=== PATIENT | female | born 1965 | race Caucasian/White ===

== ENCOUNTER 2017-03-14 11:54 | Inpatient (IN) | payer OTHER ==
[~2017-03-14] VITALS: Ht 162.6 cm; Wt 60.2 kg
[~2017-03-14 11:54] MED LIST: NEOSTIGMINE 3 MG/3 ML SYR IV ONE; ONDANSETRON HCL 4 MG/2 ML VIAL IV PUSH ONE; PROPOFOL 200 MG/20 ML AMP IV ONE
[2017-03-14 12:09] VITALS: BP 138/66; PULSE 66; RESP 16; TEMP 97.9; O2SAT 100
[2017-03-14 12:28] LABS: GLUCOSE,URINE NEG (NEG); KETONE, URINE NEG (NEG); NITRITE,URINE NEG (NEG)
[2017-03-14 12:30] LABS: BLOOD, URINE TRACE (NEG); METHOD OF COLLECTION CLEAN CATCH; URINE COLOR YELLOW (YELLW/STRAW)
[2017-03-14 12:31] LABS: COMMENT (UR) CULT NOT INDICATED; CULTURE IF INDICATED CULT NOT INDICATED; RBC, URINE 0-3 /hpf (0-3); SQUAMOUS EPITHELIAL CELL URINE 0-5 /hpf (0-5); WBC, URINE 0-2 /hpf (0-5)
[2017-03-14] MEDS ORDERED: SODIUM CHLOR 0.9% 1000 ML INJ 1,000 ML IV SCH (13:36)
[2017-03-14] MEDS ORDERED: FLUT1SPR5 EACH NARE (13:40)
[2017-03-14] MEDS ORDERED: MONT4CHW2 CHEW (13:40)
[2017-03-14] MEDS ORDERED: ADVA100A INH (13:40)
[2017-03-14 13:41] VITALS: O2SAT 100
--- NOTE | 2017-03-14 13:42 | PD ---
HPI Chief Complaint: Abdominal Pain Time Seen by Provider: 13:29 Travel History International Travel<30 days: No Contact w/Intl Traveler<30days: No Traveled to known affect area: No History of Present Illness HPI 51yo F with PMH of asthma, mitral valve prolapse and uterine ablation presents to the ED with c/o abdominal pain that started yesterday. Pain is generalized and burning. Associated with nausea. States she took advil which helped yesterday but pain returned. Did not take any pain medication today. Denies any fever, vomiting, chest pain, sob, urinary complaints, vaginal bleeding or discharge. PSH include tubal ligation and uterine ablation. PFSH Past Medical History Asthma: Yes Cardiovascular Problems: Yes (MVP) ?: Not LMP: no menses Tubal Ligation: Yes Past Surgical History Gynecologic Surgery: Yes (UTERINE ABLATION) Social History Alcohol Use: Yes (5TH VOKA/PER WEEK) Tobacco Use: No Allergies-Medications (Allergen,Severity, Reaction): Coded Allergies: Sulfa (Sulfonamide Antibiotics) (Verified Allergy, Severe, lip swelling, 03/14/17) adhesive tape (Verified Allergy, Intermediate, rash, 03/14/17) Reported Meds & Prescriptions Reported Meds & Active Scripts Active Zofran (Ondansetron HCl) 4 Mg Tab 4 Mg PO Q6HR PRN [place] (Hydrocodone-Acetaminophen) 5-325 mg Tab 1 Tab PO Q6H PRN Reported Flonase Nasal [place] (Fluticasone Nasal [place]) 50 Mcg/Act [place] 50 Mcg EACH NARE BID Singulair (Montelukast Sodium) 4 Mg Chew 4 Mg CHEW HS Advair Diskus Inh (Fluticasone-Salmeterol Inh) 100-50 Mcg/Blist Aer 1 Puff INH BID Rinse mouth after use. Review of Systems Except as stated in HPI: all other systems reviewed are Neg Physical Exam Narrative GENERAL: 51yo F in mild distress. SKIN: Focused skin assessment warm/dry. HEAD: Atraumatic. Normocephalic. EYES: Pupils equal and round. No scleral icterus. No injection or drainage. CARDIOVASCULAR: Regular rate and rhythm. No murmur appreciated. RESPIRATORY: No accessory muscle use. Clear to auscultation. Breath sounds equal bilaterally. GASTROINTESTINAL: Abdomen soft, +TTP RLQ more than other region. Mild ttp diffusely. No rebound tenderness or guarding. BACK: CVA tenderness bilaterally. No ttp midline thoracic and lumbar spine. MUSCULOSKELETAL: No obvious deformities. No clubbing. No cyanosis. No edema. NEUROLOGICAL: Awake and alert. No obvious cranial nerve deficits. Motor grossly within normal limits. Normal speech. PSYCHIATRIC: Appropriate mood and affect; insight and judgment normal. Data Data Last Documented VS Vital Signs Date Time Temp Pulse Resp B/P (MAP) Pulse Ox O2 Delivery O2 Flow Rate FiO2 03/14/17 13:41 100 Room Air 03/14/17 12:09 97.9 66 16 138/66 (90) Orders Orders Urinalysis - C+S If Indicated (03/14/17 12:12) Ed Urine Pregnancytest Poc (03/14/17 12:12) Complete Blood Count With Diff (03/14/17 13:36) Comprehensive Metabolic Panel (03/14/17 13:36) Lipase (03/14/17 13:36) Prothrombin Time / Inr (Pt) (03/14/17 13:36) Act Partial Throm Time (Ptt) (03/14/17 13:36) Ct Abd/Pel W Iv Contrast(Rout) (03/14/17 13:36) Iv Access Insert/Monitor (03/14/17 13:36) Ecg Monitoring (03/14/17 13:36) Oximetry (03/14/17 13:36) Morphine Inj (Morphine Inj) (03/14/17 13:45) Ondansetron Inj (Zofran Inj) (03/14/17 13:45) Sodium Chlor 0.9% 1000 Ml Inj (Ns 1000 M (03/14/17 13:36) Sodium Chloride 0.9% Flush (Ns Flush) (03/14/17 13:45) Electrocardiogram (03/14/17 ) Iohexol 350 Inj (Omnipaque 350 Inj) (03/14/17 14:10) Consult Tiana Nfs (03/14/17 ) Admit Order (Ed Use Only) (03/14/17 15:47) Labs Laboratory Tests Test 03/14/17 12:15 03/14/17 13:56 Urine Collection Type CLEAN CATCH Urine Color YELLOW Urine Turbidity CLEAR Urine pH 6.0 Urine Specific [place] 1.010 Urine Protein NEG mg/dL Urine Glucose (UA) NEG mg/dL Urine Ketones NEG mg/dL Urine Occult Blood TRACE Urine Nitrite NEG Urine Bilirubin NEG Urine Leukocyte Esterase NEG Urine RBC 0-3 /hpf Urine WBC 0-2 /hpf Urine Squamous Epithelial Cells 0-5 /hpf Microscopic Urinalysis Comment CULT NOT INDICATED Urine Collection Time 12:15 White Blood Count 9.5 TH/MM3 Red Blood Count 4.57 MIL/MM3 Hemoglobin 13.7 GM/DL Hematocrit 41.8 % Mean Corpuscular Volume 91.4 FL Mean Corpuscular Hemoglobin 30.0 PG Mean Corpuscular Hemoglobin Concent 32.8 % Red Cell Distribution Width 12.9 % Platelet Count 230 TH/MM3 Mean Platelet Volume 7.6 FL Neutrophils (%) (Auto) 82.4 % Lymphocytes (%) (Auto) 10.6 % Monocytes (%) (Auto) 6.0 % Eosinophils (%) (Auto) 0.5 % Basophils (%) (Auto) 0.5 % Neutrophils # (Auto) 7.9 TH/MM3 Lymphocytes # (Auto) 1.0 TH/MM3 Monocytes # (Auto) 0.6 TH/MM3 Eosinophils # (Auto) 0.0 TH/MM3 Basophils # (Auto) 0.0 TH/MM3 CBC Comment DIFF FINAL Differential Comment Prothrombin Time 10.1 SEC Prothromb Time International Ratio 0.9 RATIO Activated Partial Thromboplast Time 25.0 SEC Blood Urea Nitrogen 13 MG/DL Creatinine 0.80 MG/DL Random Glucose 91 MG/DL Total Protein 7.6 GM/DL Albumin 4.3 GM/DL Calcium Level 8.8 MG/DL Alkaline Phosphatase 44 U/L Aspartate Amino Transf (AST/SGOT) 13 U/L Alanine Aminotransferase (ALT/SGPT) 23 U/L Total Bilirubin 0.5 MG/DL Sodium Level 138 MEQ/L Potassium Level 3.6 MEQ/L Chloride Level 101 MEQ/L Carbon Dioxide Level 28.5 MEQ/L Anion Gap 9 MEQ/L Estimat Glomerular Filtration Rate 76 ML/MIN Lipase 166 U/L [facility] Medical Decision Making Medical Screen Exam Complete: Yes Emergency Medical Condition: Yes Differential Diagnosis Acute appendicitis vs. colitis vs. pancreatitis vs. gastritis Narrative Course 51yo F with abdominal pain since yesterday. Said it was generalized but more on the right side. Pt is tender in RLQ on physical exam. Labs reviewed, no leukocytosis. Neutrophil is 82.4%. CMP normal. Lipase normal. UA showed no leukocyte. Urine negative. Pt given NS IVF, morphine 4mg IV and zofran. Pt reevaluated at bedside and pain and nausea had improved. bindery machine tender in RLQ on exam. CT a/p showed inflammatory process suspected involving base of appendix concerning for early acute appendicitis. 1.8 cm low density lesion in pancreatic head, nonspecific, will have pt follow up as outpatient. Discussed with Dr. Eduardo who said Dr. Sorensen is corporate vp advertising & online so he will let Dr. Sorensen know and he will call back. Discussed with Dr. Sorensen and he will take the pt to the OR. Pt has been NPO. Diagnosis Primary Impression: Acute appendicitis Qualified Codes: K35.89 - Other acute appendicitis Admitting Information Admitting Physician Requests: Admit Scripts Ondansetron (Zofran) 4 Mg Tab 4 MG PO Q6HR Y for NAUSEA OR VOMITING, #14 TAB 0 Refills Prov: Dylan Sorensen MD 03/14/17 Hydrocodone-Acetaminophen ([place]) 5-325 mg Tab 1 TAB PO Q6H Y for PAIN, #20 TAB 0 Refills Prov: Dylan Sorensen MD 03/14/17 Sheryl Melgar DO Mar 14, 2017 13:42
[2017-03-14] MEDS ORDERED: ONDANSETRON HCL 4 MG/2 ML VIAL IVP ONE (13:45)
[2017-03-14] MEDS ORDERED: MORPHINE SULFATE 4 MG/ML INJ IV PUSH ONE (13:45)
[2017-03-14] MEDS ORDERED: SODIUM CHLORIDE 0.9% FLUSH 10 ML FLUSH IV FLUSH PRN (13:45)
[2017-03-14 14:05] LABS: AUTOMATED NEUTROPHIL # 7.9 TH/MM3 (1.8-7.7); BASOPHIL % 0.5 % (0.0-2.0); EOSINOPHIL % 0.5 % (0.0-4.0); HEMATOCRIT 41.8 % (35.0-46.0); LYMPH % 10.6 % (9.0-44.0); MEAN CELL VOLUME 91.4 FL (80.0-100.0); MEAN CORPUSCULAR HGB CONC 32.8 % (32.0-36.0); NEUT % 82.4 % (16.0-70.0); PLATELET COUNT 230 TH/MM3 (150-450); RED BLOOD COUNT 4.57 MIL/MM3 (4.00-5.30); RED CELL DISTRIBUTION WIDTH 12.9 % (11.6-17.2); WHITE BLOOD COUNT 9.5 TH/MM3 (4.0-11.0)
[2017-03-14 14:06] LABS: HEMO FLAGS DIFF FINAL
[2017-03-14] MEDS ORDERED: IOHEXOL 350 MG/ML 10 ML VIAL (for RAD DIAG) IVCONTRAST ONE (14:10)
[2017-03-14 14:13] LABS: CHLORIDE 101 MEQ/L (98-107); POTASSIUM 3.6 MEQ/L (3.5-5.1); SODIUM (NA) 138 MEQ/L (136-145)
[2017-03-14 14:17] LABS: ANION GAP 9 MEQ/L (5-15); BICARBONATE 28.5 MEQ/L (21.0-32.0); BLOOD UREA NITROGEN 13 MG/DL (7-18)
[2017-03-14 14:19] LABS: INTERNATIONAL NORMALIZED RATIO 0.9 RATIO; PROTHROMBIN TIME - PATIENT 10.1 SEC (9.8-11.6)
[2017-03-14 14:20] LABS: ALT (GPT) 23 U/L (10-53); AST (GOT) 13 U/L (15-37); GLOMERULAR FILTRATION RATE 76 ML/MIN (>89)
[2017-03-14 14:21] LABS: TOTAL BILIRUBIN ADULT 0.5 MG/DL (0.2-1.0)
[2017-03-14 14:23] LABS: ALKALINE PHOSPHATASE 44 U/L (45-117)
--- NOTE | 2017-03-14 14:38 | RADRPT ---
EXAM DATE/TIME: 03/14/2017 14:02 [place] COMPARISON: No previous studies available for comparison. INDICATIONS : Right lower quadrant pain. IV CONTRAST: 85 cc Omnipaque 350 (iohexol) IV ORAL CONTRAST: No oral contrast ingested. RADIATION DOSE: 6.37 CTDIvol (mGy) MEDICAL HISTORY : Cardiovascular disease. Asthma. SURGICAL HISTORY : Tubal ligation. Uterine ablation. ENCOUNTER: Initial ACUITY: 1 day PAIN SCALE: 5/10 LOCATION: Right lower quadrant TECHNIQUE: Volumetric scanning of the abdomen and pelvis was performed. Using automated exposure control and ad justment of the mA and/or kV according to patient size, radiation dose was kept as low as reasonably achievable to obtain optimal diagnostic quality images. DICOM format image data is available electro nically for review and comparison. FINDINGS: LOWER LUNGS: The visualized lower lungs are clear. LIVER: Homogeneous density without lesion. There is no dilation of the biliary tree. No calcified gallston es. SPLEEN: Normal size without lesion. PANCREAS: There is an oval-shaped area of decreased density involving the pancreatic head approaching the uncin ate process. This measures 1.8 x 0.7 x 0.6 cm. The density is approaching that of fat. The remaining aspects of the pancreas are unremarkable. No ductal dilatation. No inflammatory process appreciated. KIDNEYS: Normal in size and shape. There is no mass, stone or hydronephrosis. ADRENAL GLANDS: Within normal limits. VASCULAR: There is no aortic aneurysm. BOWEL/MESENTERY: There is mild stranding of the fat surrounding the base of the appendix. The base of the appendix kaushik ws mild thickening of the wall. It is within the top normal range for size measuring 9 mm in diameter . No appendicolith observed. The remaining bowel structures are unremarkable. No free air or free flu id. No abscess. ABDOMINAL WALL: Within normal limits. RETROPERITONEUM: There is no lymphadenopathy. BLADDER: No wall thickening or mass. REPRODUCTIVE: Within normal limits. INGUINAL: There is no lymphadenopathy or hernia. MUSCULOSKELETAL: Within normal limits for patient age. CONCLUSION: 1. Inflammatory process suspected involving the base of the appendix concerning for early acute appen dicitis. 2. 1.8 cm low-density lesion involving the pancreatic head. This is nonspecific in CT appearance. An outpatient followup MRI of the pancreas is suggested to further evaluate. Jeff Faye Jr., MD on March 14, 2017 at 14:30 Board Certified Radiologist. This report was verified electronically.
[2017-03-14] MEDS ORDERED: BUPIVACAINE/EPINEPHRINE 0.5% 50 ML VIAL ONE (16:25)
[2017-03-14] MEDS ORDERED: ACETAMINOPHEN 1000 MG/100 ML 100 ML IV ONE (16:50)
[2017-03-14] MEDS ORDERED: LEVOFLOXACIN 500 MG PREMIX INJ 100 ML IV ONE (16:50)
[2017-03-14] MEDS ORDERED: LEVOFLOXACIN 500 MG PREMIX INJ 100 ML IV SCH (17:15)
[2017-03-14] MEDS ORDERED: NORC5TAB PO (18:00)
--- NOTE | 2017-03-14 18:02 | HHI.PR ---
cc: Dylan Sorensen MD Immediate Post Op Note Procedure Date: Mar 14, 2017 Pre Op Diagnosis: (1) Right lower quadrant pain (2) Appendicitis (3) Abnormal CT of the abdomen Post Op Diagnosis: (1) Appendicitis (2) Right lower quadrant pain (3) Abnormal CT of the abdomen Surgeon: Dylan Sorensen Edge Bonder(s): Refer to Procedure: Laparoscopic appendectomy Findings: Inflamed appendix Specimen(s) removed: Appendix Estimated blood loss: Minimum Anesthesia: General Drains: None IVF Patient to: PACU Patient Condition: Good Implant/Devices: SEE IMPLANT LOG (if applicable) Date/Time of Procedure: SEE SURGICAL CARE RECORD Dylan Sorensen MD Mar 14, 2017 18:02
[2017-03-14] MEDS ORDERED: ZOFR4TAB PO (18:23)
[2017-03-14] MEDS ORDERED: METOPROLOL TARTRATE 25 MG TAB PO PRN (19:45)
[2017-03-14] MEDS ORDERED: SODIUM CHLORID 0.9% 500 ML IV PRN (19:45)
[2017-03-14] MEDS ORDERED: POVIDONE IODINE 5% (ANTISEPSIS KIT) 4 APPLICATIONS EACH NARE PRN (19:45)
[2017-03-14] MEDS ORDERED: LACTATED RINGER'S 1000 ML IV PRN (19:45)
[2017-03-14] MEDS ORDERED: CHLORHEXIDINE GLUCONATE 2 % 1 PACK (2 CLOTHS) TOPICAL PRN (19:45)
[2017-03-14] MEDS ORDERED: INSULIN HUMAN REGULAR 1,000 UNITS/10 ML VIAL SQ PRN (19:45)
[2017-03-14] MEDS ORDERED: ACETAMINOPHEN/HYDROcodone 325 MG/5 MG TAB PO PRN (19:45)
[2017-03-14] MEDS ORDERED: HYDROmorphone HCL PF 0.5 MG/0.5 ML SYRINGE IV PUSH PRN (19:45)
[2017-03-14 19:50] VITALS: BP 127/74; PULSE 60; RESP 16; TEMP 98.6; O2SAT 98
[2017-03-14] MEDS ORDERED: ACETAMINOPHEN 1000 MG/100 ML 100 ML IV SCH (20:00)
[2017-03-14] MEDS ORDERED: MONTELUKAST SODIUM 4 MG CHEWABLE TAB CHEW SCH (21:00)
--- NOTE | 2017-03-14 21:15 | MB ---
cc: HEATHER BURGER DATE OF EMERGENCY ROOM CONSULTATION which required history and physical for surgery. 03/14/17 History and physical FOR SURGICAL ATTENDING, DR. HEATHER BURGER This is a pleasant 51-year-old female who came to the emergency room with periumbilical pain radiating into the right lower quadrant. Found that she had a appendicitis on CT scan and on clinical exam. Surgery was consulted. She had complained about some periumbilical pain extending down the right lower quadrant with discomfort She never had any pain like this before. Of note, she has also had this pancreatic mass that is somewhat ill defined. We recommend MRI at a later date. PAST MEDICAL HISTORY Negative for any chronic medical problems except for asthma. She has had uterine ablations. Some ECONOMICS LECTURER surgery, a tubal ligation. She drinks a little alcohol. No ENT, neurologic, cardiovascular problems. Respiratory problems are the asthma. ECONOMICS LECTURER problems the tubal ligation and the ureteral ablation. No problems,1 endocrine or other history. SOCIAL HISTORY She works in a dermatology office. MEDICATIONS She takes some asthma medication. ALLERGIES INCLUDE SULFA AND LATEX. PHYSICAL EXAMINATION GENERAL: On physical exam she is awake, alert, oriented, comfortable, points to her right lower quadrant. EOMI NECK: Supple. No masses CHEST: Clear. HEART: Regular rate. ABDOMEN: Thin, soft. Exquisite tenderness to her right lower quadrant, right a McBurney's point. Surgical scars from her ablation noted and tubal ligation. No hernias noted. EXTREMITIES: Moves all extremities well. No clubbing, cyanosis or edema. NEUROLOGIC: She is alert, oriented times three without focal deficits. LABORATORY DATA She had a white count of 9. H&H of 13 and 41. Chemistry normal. LFTs normal. Lipase normal. Urinalysis clean. IMAGING STUDIES CT scan shows appendicitis and also an ill-defined mass in the pancreas. ASSESSMENT Acute appendicitis by physical exam and history with confirmation on radiologic imaging. PLAN Laparoscopic appendectomy immediately. This was discussed with the patient in detail. As for this pancreatic mass this will be worked up with an MRI on an outpatient basis. MD ESSIE Turpin/SREEDHAR /6:11 PM /8:56 PM CIERRA
[2017-03-14] MEDS: FLUTICASONE PROPIONATE 50 MCG/ACT 16 GM NASAL SPRAY NASAL SCH (21:44)
[2017-03-14] MEDS: BUDESONIDE-FORMOTEROL 80/4.5 MCG INHALER INH SCH (21:45)
--- NOTE | 2017-03-14 22:39 | MP ---
cc: HEATHER SORENSEN DATE OF SURGERY 03/14/17 PREOPERATIVE DIAGNOSIS Appendicitis. POSTOPERATIVE DIAGNOSIS Appendicitis. PROCEDURE Laparoscopic appendectomy. ANESTHESIA General. SURGEON Dr. Sorensen. INDICATIONS The patient is a pleasant lady who was found to have appendicitis. Plans were made for above. PROCEDURE IN DETAIL The patient is taken to the operating room, placed in the supine position. After anesthesia her abdomen was prepped with Betadine. She was given preoperative antibiotics. Time-out was done. We make an incision just above the umbilicus. Veress needle was inserted, saline load test was performed. The abdomen was insufflated to 50 mmHg. Two other working ports are placed 5 mm between at the pubic tubercle and then between the two previously placed ports. Appendix can be seen at somewhat retrocecal and scarred in. This is carefully teased away with the harmonic scalpel. The appendiceal arteries cauterized with the harmonic scalpel. We lift up the base of the appendix, obviously appendix is inflamed. No evidence of perforation. We then placed two Endoties at the base of the appendix and is amputated, passed off the field after retrieving it through the EndoCatch. We check our dissection site and there is excellent hemostasis, both ovaries were seen. She has a small fibroid on the uterus but otherwise looks fairly normal. The gallbladder looks normal. Liver looks normal. No other gross abnormalities seen. The irrigating solution is irrigated and then removed. The trocars are removed. The 10 mm port site at the umbilicus is closed with a 0 Vicryl and skin is closed with a 4-0 Vicryl. Steri-Strips applied. Sterile bandage applied. The patient tolerated the procedure well and had no immediate postop complications. Heather Sorensen MD JDB/SREEDHAR /6:14 PM /10:25 PM
[2017-03-14] MEDS: ACETAMINOPHEN 1000 MG/100 ML 100 ML IV SCH (23:10)
[2017-03-14] MEDS: ONDANSETRON ODT 4 MG TAB PO PRN (23:15)
[2017-03-15] VITALS: BP 116/65; PULSE 52; RESP 16; TEMP 98.2; O2SAT 99
[2017-03-15] MEDS: ONDANSETRON ODT 4 MG TAB PO PRN (03:51)
[2017-03-15] MEDS: ACETAMINOPHEN 1000 MG/100 ML 100 ML IV SCH (04:53)
--- NOTE | 2017-03-15 07:23 | HHI.DS ---
Discharge Summary Admission Date Mar 14, 2017 at 15:49 Discharge Date: Mar 15, 2017 Admitting Diagnosis Acute appendicitis (1) Appendicitis ICD Codes: K37 - Unspecified appendicitis Status: Acute (2) Abnormal CT of the abdomen Diagnosis: Principal ICD Codes: R93.5 - Abnormal findings on diagnostic imaging of other abdominal regions, including retroperitoneum (3) Mass of pancreas ICD Codes: K86.9 - Disease of pancreas, unspecified (4) Status post laparoscopic appendectomy Diagnosis: Secondary ICD Codes: Z90.49 - Acquired absence of other specified parts of digestive tract Status: Acute Procedures Laparoscopic appendectomy CBC/BMP: 03/14/17 1356 03/14/17 1356 Significant Findings Laboratory Tests Test 03/14/17 12:15 03/14/17 13:56 Urine Occult Blood TRACE (NEG) Neutrophils (%) (Auto) 82.4 % (16.0-70.0) Neutrophils # (Auto) 7.9 TH/MM3 (1.8-7.7) Alkaline Phosphatase 44 U/L (45-117) Aspartate Amino Transf (AST/SGOT) 13 U/L (15-37) Estimat Glomerular Filtration Rate 76 ML/MIN (>89) PE at Discharge Patient recovering from laparoscopic appendectomy Has a headache She would like to eat We'll be discharged after breakfast Pt Condition on Discharge: Good Discharge Disposition: Discharge Home Discharge Instructions DIET: Follow Instructions for: As Tolerated, No Restrictions Activities you can perform: Shower Only-No Bath, See Additionl Instruction Activities to avoid: Concussion Sports, Contact Sports, Lifting/Bending, Weight Bearing, Prolonged Standing, Strenuous Activity, Bathing, Driving Follow up Referrals: Surgical with Dylan Sorensen MD New Medications: Ondansetron (Zofran) 4 Mg Tab 4 MG PO Q6HR PRN for NAUSEA OR VOMITING, #14 TAB 0 Refills Continued Medications: Fluticasone Nasal [place] (Flonase Nasal [place]) 50 Mcg/Act [place] 50 MCG EACH NARE BID for Allergies, #1 BOTTLE 0 Refills Fluticasone-Salmeterol Inh (Advair Diskus Inh) 100-50 Mcg/Blist Aer 1 PUFF INH BID for Asthma Management, #1 INHALER 0 Refills Rinse mouth after use. Hydrocodone-Acetaminophen ([place]) 5-325 mg Tab 1 TAB PO Q6H PRN for PAIN, #20 TAB 0 Refills Montelukast (Singulair) 4 Mg Chew 4 MG CHEW HS, #30 TAB 0 Refills Dylan Sorensen MD Mar 15, 2017 07:23
[2017-03-15 08:00] VITALS: BP 108/61; PULSE 60; RESP 16; TEMP 97.8; O2SAT 99
[2017-03-15] MEDS: FLUTICASONE PROPIONATE 50 MCG/ACT 16 GM NASAL SPRAY NASAL SCH (09:00)
[2017-03-15] MEDS: BUDESONIDE-FORMOTEROL 80/4.5 MCG INHALER INH SCH (09:00)
--- NOTE | 2017-03-15 12:29 | EKG ---
Date Performed: 03/14/2017 Time Performed: 14:23:02 PTAGE: 51 years EKG: Normal Sinus rhythm Left axis deviation Incomplete right bundle branch block ABNORMAL ECG NO PREVIOUS TRACING DOCTOR: Brenden Caicedo Interpretating Date/Time 03/15/2017 12:29:08
== END 2017-03-15 11:08 | disposition home or self-care (01) | DRG 343 ==
LOC: PHED 11:54 → PHEDA 15:49 → PH3B 19:40
PROVIDERS: ADMIT Surgery; ATTEND Surgery
PROC: 0DTJ4ZZ Resection of Appendix, Percutaneous Endoscopic Approach (ICD-10-PCS; principal; 2017-03-14 16:58)
DX: K35.80 Unspecified acute appendicitis (principal); I34.1 Nonrheumatic mitral (valve) prolapse; J45.909 Unspecified asthma, uncomplicated; K86.9 Disease of pancreas, unspecified
CPT/HCPCS: 74177; 80053; 81001; 83690; 84703; 85025; 85610; 85730; 88304; 93005; J0131; J1956; J2405; J2710; J3010; J7030; Q9967